=== PATIENT | male | born 1975 | race Hispanic/Latino ===

== ENCOUNTER 2016-06-05 17:57 | Emergency (ER) | payer OTHER ==
[2016-06-05 19:06] LABS: Hematocrit 34.6 % (35.5-45.6); Hemoglobin 11.4 gm/dl (11.8-15.2); Mean Corpuscular HGB Conc 33 % (32-34); Mean Corpuscular Hemoglobin 27 pg (28-32); Mean Corpuscular Volume 82 fl (84-94); Platelet Count 201 K/mm3 (140-440); Red Cell Distribution Width 13.3 % (13.2-15.2); White Blood Count 7.3 K/mm3 (4.5-11.0)
[2016-06-05 19:29] LABS: Anion Gap 18 mmol/L; Blood Urea Nitrogen 12 mg/dL (9-20); Calcium 8.6 mg/dL (8.4-10.2); Carbon Dioxide 27 mmol/L (22-30); Glucose 100 mg/dL (75-100); Potassium 4.6 mmol/L (3.6-5.0); Sodium 144 mmol/L (137-145)
--- NOTE | 2016-06-05 22:19 | Emergency Department Report ---
ED Seizure HPI - General Chief Complaint: Seizure Stated Complaint: SEIZURE Time Seen by Provider: 06/05/16 21:59 Source: patient Mode of arrival: Ambulatory Limitations: No Limitations - History of Present Illness Initial Comments: Patient is a 40-year-old male with a history of seizure disorder, bipolar, hep c , and schizophrenia who presents to the ER status post seizure this morning. Patient is at anger and reports he is often taking his Depakote for 3 days and had a seizure this morning. Patient sent by anchor for evaluation. Patient reports he is back at his baseline and took his Depakote, patient takes 500mg in the morning and 750mg at night. Was no other complaints - Related Data Home Medications Medication Instructions Recorded Confirmed Last Taken Divalproex ER [DepaKOTE ER] 1,000 mg PO QDAY 11/23/15 11/23/15 11/22/15 Divalproex ER [DepaKOTE ER] 500 mg PO QHS 11/23/15 11/23/15 11/22/15 Gabapentin [Neurontin] 800 mg PO Q8H 11/23/15 11/23/15 11/22/15 Ranitidine HCl [Heartburn Relief] 300 mg PO DAILY 11/23/15 11/23/15 11/22/15 Ziprasidone [Geodon] 60 mg PO QHS 11/23/15 11/23/15 11/22/15 diphenhydrAMINE [Benadryl CAP] 25 mg PO Q8HR PRN 11/23/15 11/23/15 11/22/15 hydrOXYzine PAMOATE [Vistaril] 25 mg PO Q6HR PRN 11/23/15 11/23/15 11/22/15 Allergies Allergy/AdvReac Type Severity Reaction Status Date / Time No Known Allergies Allergy Unverified 11/22/15 18:06 ED Review of Systems ROS: Stated complaint: SEIZURE Other details as noted in HPI Comment: All other systems reviewed and negative ED Past Medical Hx - Past Medical History Hx Hypertension: Yes Hx Psychiatric Treatment: Yes (bipolar ,schizophrenia, PTSD) Additional medical history: hep C; cirrhosis, lift support from vet injury,head injury,plates in right foot - Surgical History Additional Surgical History: back fusions - Social History Smoking Status: Never Smoker Substance Use Type: None - Medications Home Medications: Home Medications Medication Instructions Recorded Confirmed Last Taken Type Divalproex ER [DepaKOTE ER] 1,000 mg PO QDAY 11/23/15 11/23/15 11/22/15 History Divalproex ER [DepaKOTE ER] 500 mg PO QHS 11/23/15 11/23/15 11/22/15 History Gabapentin [Neurontin] 800 mg PO Q8H 11/23/15 11/23/15 11/22/15 History Ranitidine HCl [Heartburn Relief] 300 mg PO DAILY 11/23/15 11/23/15 11/22/15 History Ziprasidone [Geodon] 60 mg PO QHS 11/23/15 11/23/15 11/22/15 History diphenhydrAMINE [Benadryl CAP] 25 mg PO Q8HR PRN 11/23/15 11/23/15 11/22/15 History hydrOXYzine PAMOATE [Vistaril] 25 mg PO Q6HR PRN 11/23/15 11/23/15 11/22/15 History ED Physical Exam - General Limitations: No Limitations General appearance: alert, in no apparent distress - Head Head exam: Present: atraumatic, normocephalic - Eye Eye exam: Present: normal appearance - ENT ENT exam: Present: mucous membranes moist - Neck Neck exam: Present: normal inspection - Respiratory Respiratory exam: Present: normal lung sounds bilaterally. Absent: respiratory distress - Cardiovascular Cardiovascular Exam: Present: regular rate, normal rhythm. Absent: systolic murmur, diastolic murmur, rubs, gallop - GI/Abdominal GI/Abdominal exam: Present: soft, normal bowel sounds - Rectal Rectal exam: Present: deferred - Extremities Exam Extremities exam: Present: normal inspection - Back Exam Back exam: Present: normal inspection - Neurological Exam Neurological exam: Present: alert, oriented X3 - Psychiatric Psychiatric exam: Present: normal affect, normal mood - Skin Skin exam: Present: warm, dry, intact, normal color. Absent: rash ED Course Vital Signs 06/05/16 06/05/16 18:30 21:50 Temperature 98.2 F 98.1 F Pulse Rate 102 H 79 Respiratory 18 14 Rate Blood Pressure 137/83 Blood Pressure 139/88 [Left] O2 Sat by Pulse 100 97 Oximetry ED Medical Decision Making - Lab Data Result diagrams: 06/05/16 18:49 06/05/16 18:49 - EKG Data -: EKG Interpreted by Me (22:37) EKG shows normal: sinus rhythm, axis (normal axis, no LVH), intervals (Qtc:467ms ), ST-T waves ((-)ST/T changes, no stemi) Rate: normal (83 bpm) - Medical Decision Making Patient given his afternoon dose of Depakote 750 mg by mouth Critical care attestation.: If time is entered above; I have spent that time in minutes in the direct care of this critically ill patient, excluding procedure time. ED Disposition Clinical Impression: Seizure disorder Clinical Impression: (Ruled Out): Seizure disorder as sequela of cerebrovascular accident Disposition: DISCHARGED TO HOME OR SELFCARE Is pt being admited?: No Condition: Stable Instructions: Epilepsy (ED) Referrals: PRIMARY CARE, [Primary Care Provider] - 3-5 Days
[2016-06-05 23:19] VITALS: BP 128/74
== END 2016-06-05 23:28 | disposition home or self-care (01) ==
LOC: ED 17:57
DX: G40.909 Epilepsy, unspecified, not intractable, without status epilepticus (principal); I10 Essential (primary) hypertension; F31.9 Bipolar disorder, unspecified; F20.9 Schizophrenia, unspecified
CPT/HCPCS: 36415; 80048; 80164; 85027; 93005; 93010; 99283

== ENCOUNTER 2016-06-09 11:32 | Emergency (ER) | payer OTHER ==
--- NOTE | 2016-06-09 12:11 | Emergency Department Report ---
Entered by REBECA CONWAY, acting as scribe for SANDY ANAYA NP. Chief Complaint: Seizure Stated Complaint: WEAKNESS Time Seen by Provider: 06/09/16 11:58 - HPI History of Present Illness: 40 y/o male presents c/o 8/10, pain and numbness in both hands that started 2 days ago. Sx include LE swelling, slurred speech and weakness but denies any seizures occurring last night. He notes being seen here in the last week for similar Sx. Hx of seizures. Meds include suboxone hep c opiate addiction sz hx ?abscence sz in triage v over medicated pt is falling asleep in triage NAD VSS MAEW - ROS Review of Systems: as noted in HPI - Exam Vital Signs: Vital Signs 06/09/16 11:51 Temperature 98.0 F Pulse Rate 72 Blood Pressure 142/87 O2 Sat by Pulse 97 Oximetry Physical Exam: as noted in HPI MSE screening note: Focused history and physical exam performed. Due to findings the following was ordered: ED Disposition for MSE Condition: Stable This documentation as recorded by the scribe,REBECA CONWAY,accurately reflects the service I personally performed and the decisions made by ,SANDY ANAYA NP.
[2016-06-09 13:06] LABS: Urine Drugs of Abuse Note Disclamer
[2016-06-09 13:17] LABS: Bilirubin,Urine NEG (Negative); Blood,Urine NEG (Negative); Ketones,Urine NEG (Negative); Leukocyte Esterase,Urine NEG (Negative); Mucus,Urine FEW /HPF; Nitrite,Urine NEG (Negative); Protein,Urine <15 mg/dL mg/dL (Negative); Urobilinogen,Urine < 2.0 mg/dL (<2.0)
--- NOTE | 2016-06-09 17:29 | Cat Scan Report ---
FINAL REPORT PROCEDURE: CT HEAD/BRAIN WO CON TECHNIQUE: Computerized tomography of the head was performed without contrast material. HISTORY: Headache. Fatigue. Confusion. COMPARISON: No prior studies are available for comparison. 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 Paranasal sinuses: Normal. Ventricles and subarachnoid spaces: Normal. Cerebrum: No evidence of hemorrhage, acute infarction or mass . Cerebellum and brainstem: No evidence of hemorrhage, acute infarction or mass. Vasculature: Normal. Comments: None. IMPRESSION: No CT evidence of acute intracranial pathology. Consider MRI of the brain for further characterization if there is continued clinical concern and if patient has no contraindication to MRI.
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
[2016-06-09 18:19] VITALS: BP 136/76
[2016-06-09 18:34] LABS: Basophils % (Auto) 0.5 % (0.0-1.8); Eosinophils % (Auto) 7.7 % (0.0-4.3); Hematocrit 33.8 % (35.5-45.6); Hemoglobin 11.2 gm/dl (11.8-15.2); Mean Corpuscular HGB Conc 33 % (32-34); Mean Corpuscular Hemoglobin 27 pg (28-32); Mean Corpuscular Volume 82 fl (84-94); Platelet Count 178 K/mm3 (140-440); Red Cell Distribution Width 13.3 % (13.2-15.2); White Blood Count 5.3 K/mm3 (4.5-11.0)
[2016-06-09 18:44] LABS: Partial Thromboplastin Time 32.3 Sec. (24.2-36.6)
[2016-06-09 18:50] LABS: Alanine Aminotransferase 15 units/L (7-56); Albumin 3.4 g/dL (3.9-5); Albumin/Globulin Ratio 1.3 %; Alkaline Phosphatase 65 units/L (35-129); Anion Gap 15 mmol/L; BUN/Creatinine Ratio 17.77; Bilirubin,Total 0.5 mg/dL (0.1-1.2); Blood Urea Nitrogen 16 mg/dL (9-20); Calcium 8.3 mg/dL (8.4-10.2); Carbon Dioxide 28 mmol/L (22-30); Chloride 102.5 mmol/L (98-107); Glucose 91 mg/dL (75-100); Potassium 4.2 mmol/L (3.6-5.0); Sodium 141 mmol/L (137-145)
== END 2016-06-09 19:36 | disposition home or self-care (01) ==
LOC: ED 11:32
DX: R60.0 Localized edema (principal); L73.9 Follicular disorder, unspecified; R40.0 Somnolence; I10 Essential (primary) hypertension; R56.9 Unspecified convulsions; F31.9 Bipolar disorder, unspecified; F20.9 Schizophrenia, unspecified; B19.20 Unspecified viral hepatitis C without hepatic coma
CPT/HCPCS: 36415; 70450; 80053; 80164; 80307; 81001; 82140; 83880; 85025; 85610; 85730; 99284; G0480; 80320

== ENCOUNTER 2016-12-06 11:04 | Emergency (ER) | payer OTHER ==
[2016-12-06 12:11] LABS: Urine Drugs of Abuse Note Disclamer
[2016-12-06 12:20] LABS: Bilirubin,Urine NEG (Negative); Blood,Urine NEG (Negative); Ketones,Urine NEG (Negative); Leukocyte Esterase,Urine NEG (Negative); Mucus,Urine FEW /HPF; Nitrite,Urine NEG (Negative); Protein,Urine <15 mg/dL mg/dL (Negative); WBC,Urine < 1.0 /HPF (0.0-6.0)
[2016-12-06 12:32] LABS: Basophils % (Auto) 0.3 % (0.0-1.8); Eosinophils % (Auto) 0.6 % (0.0-4.3); Hematocrit 38.4 % (35.5-45.6); Hemoglobin 13.1 gm/dl (11.8-15.2); Mean Corpuscular HGB Conc 34 % (32-34); Mean Corpuscular Hemoglobin 28 pg (28-32); Mean Corpuscular Volume 83 fl (84-94); Platelet Count 200 K/mm3 (140-440); Red Blood Count 4.63 M/mm3 (3.65-5.03); Red Cell Distribution Width 14.1 % (13.2-15.2); White Blood Count 5.7 K/mm3 (4.5-11.0)
[2016-12-06 12:35] LABS: Anion Gap 18 mmol/L; BUN/Creatinine Ratio 15; Blood Urea Nitrogen 12 mg/dL (9-20); Calcium 8.8 mg/dL (8.4-10.2); Carbon Dioxide 25 mmol/L (22-30); Chloride 100.3 mmol/L (98-107); Glucose 97 mg/dL (75-100); Potassium 4.4 mmol/L (3.6-5.0); Sodium 139 mmol/L (137-145)
[2016-12-06 23:09] LABS: Urine Drugs of Abuse Note Disclamer
[2016-12-06 23:28] LABS: Bilirubin,Urine NEG (Negative); Blood,Urine NEG (Negative); Ketones,Urine TR mg/dL (Negative); Leukocyte Esterase,Urine NEG (Negative); Mucus,Urine 2+ /HPF; Nitrite,Urine NEG (Negative)
--- NOTE | 2016-12-06 23:48 | Emergency Department Report ---
ED Psych HPI - General Chief Complaint: Medical Clearance Stated Complaint: MENTAL HEALTH Time Seen by Provider: 12/06/16 23:25 Source: patient Mode of arrival: Ambulatory - History of Present Illness Initial Comments: 41-year-old male brought in to ER for medical clearance. He is known to have psychiatric illness. Past history of suicidal ideation, substance abuse and seizure disorder. He was taken to [facility], a psychiatric facilityl this morning for evaluation but he couldn't be admitted there because his spouse is also in same facility. He was brought to [facility] for psychiatric evaluation and clearance. He admits to abusing cocaine and meth about 2 weeks now. Noncompliant on his usual psychiatric medication. While in the ER is become very aggressive and very explosive in his actions also expressing delusional ideas and denies suicidal ideation. MD Complaint: altered mental status -: Gradual, week(s) (2, progressively getting worse) Associated Psychiatric Symptoms: racing thoughts, delusions History of same: Yes Quality: getting worse Improves With: none Worsens With: none Context: recent alcohol abuse, recent drug abuse (cocaine and meth), not taking psychiatric Associated Symptoms: shortness of breath Treatments Prior to Arrival: placed on mental he, physical restraints - Related Data Home Medications Medication Instructions Recorded Confirmed Last Taken No Known Home Medications [No 12/06/16 12/06/16 Unknown Reported Home Medications] Allergies Allergy/AdvReac Type Severity Reaction Status Date / Time No Known Allergies Allergy Unverified 11/22/15 18:06 ED Review of Systems ROS: Stated complaint: MENTAL HEALTH Other details as noted in HPI Comment: Unobtainable due to pts medical conditions (patient not very cooperative, expressing additional ideas very aggitated and aggressive) Constitutional: no symptoms reported, weakness ED Past Medical Hx - Past Medical History Hx Hypertension: Yes Hx Seizures: Yes Hx Psychiatric Treatment: Yes (bipolar ,schizophrenia, PTSD) Additional medical history: hep C; cirrhosis, lift support from vet injury,head injury,plates in right foot - Surgical History Additional Surgical History: back fusions - Social History Smoking Status: Current Every Day Smoker Substance Use Type: Alcohol, Cocaine, Methamphetamines - Medications Home Medications: Home Medications Medication Instructions Recorded Confirmed Last Taken Type No Known Home Medications [No 12/06/16 12/06/16 Unknown History Reported Home Medications] ED Physical Exam - General Limitations: No Limitations General appearance: anxious, other (agitated and very aggressive, 4-point restraints applied) - Head Head exam: Present: atraumatic, normocephalic, normal inspection - Eye Eye exam: Present: normal appearance, PERRL, EOMI. Absent: scleral icterus, conjunctival injection, nystagmus - ENT ENT exam: Present: normal exam, normal orophraynx - Neck Neck exam: Present: normal inspection, full ROM. Absent: tenderness, meningismus, lymphadenopathy - Respiratory Respiratory exam: Present: normal lung sounds bilaterally. Absent: respiratory distress, wheezes, chest wall tenderness, accessory muscle use, decreased breath sounds - Cardiovascular Cardiovascular Exam: Present: regular rate, normal rhythm, normal heart sounds. Absent: bradycardia, tachycardia, systolic murmur, diastolic murmur, rubs - GI/Abdominal GI/Abdominal exam: Present: soft, distended, normal bowel sounds. Absent: tenderness, guarding, rebound, rigid, diminished bowel sounds, hyperactive bowel sounds, hypoactive bowel sounds, organomegaly, mass, bruit, pulsatile mass - Rectal Rectal exam: Present: deferred - Extremities Exam Extremities exam: Present: normal inspection, full ROM, normal capillary refill. Absent: pedal edema, joint swelling - Back Exam Back exam: Present: normal inspection, full ROM. Absent: CVA tenderness (R), CVA tenderness (L), muscle spasm, vertebral tenderness - Neurological Exam Neurological exam: Present: alert, CN II-XII intact, other (very aggressive) - Psychiatric Psychiatric exam: Present: agitated, anxious, manic ED Course Vital Signs 12/06/16 12/07/16 11:35 03:30 Temperature 98.4 F 98.3 F Pulse Rate 94 H 98 H Respiratory 20 20 Rate Blood Pressure 161/91 Blood Pressure 130/88 [Left] O2 Sat by Pulse 99 100 Oximetry - Consultations Consultation #1: 12/07/16 04:59 Patient has already been seen by the mental health officer ED Medical Decision Making - Lab Data Result diagrams: 12/06/16 11:52 12/06/16 11:52 Critical Care Time: No Critical care attestation.: If time is entered above; I have spent that time in minutes in the direct care of this critically ill patient, excluding procedure time. ED Disposition Clinical Impression: Delusional disorder, Psychosis, Polysubstance abuse Disposition: [id number] PSY HOSP/PSY UNIT Is pt being admited?: No Does the pt Need Aspirin: No Condition: Stable Referrals: PRIMARY CARE, [Primary Care Provider] - 3-5 Days Time of Disposition: 06:10
[2016-12-07] MEDS ORDERED: HALDOL ONE (04:35)
[2016-12-07] MEDS ORDERED: HALDOL IM PRN (04:37)
[2016-12-07] MEDS ORDERED: BENADRYL IM PRN (04:38)
[2016-12-07] MEDS ORDERED: ATIVAN IM PRN (04:39)
[2016-12-07 08:28] VITALS: BP 105/61
--- NOTE | 2016-12-07 13:19 | Consultation ---
History of Present Illness - Reason for Consult Consult date: 12/07/16 Reason for consult: Mental Health Evaluation Requesting physician: JACQUES FONSECA - Chief Complaint Chief complaint: "I am tired" - History of Present Psychiatric Illness 41 y.o. white male presenting to [facility] for medical clearance. Per the ER note patient was delusional and aggressive during triage, so patient had to be restrained and given PRN medication. Today patient is calm, but lethargic during the assessment. He stated that he was tired when asked how he felt. When asked why he went to [facility] initially, he stated, "I don't know." Per the ER note, the patient's spouse is inpatient at [facility]. Throughout the interview, the patient would mumble some answers when asked questions. He did state binging on "meth and cocaine" the last 5 days, and noncompliant with his psy medication for 2 weeks (Todd). After answering questions about his current medication, patient fell alseep. UDS positive for amphetamines. Medications and Allergies Allergies Allergy/AdvReac Type Severity Reaction Status Date / Time No Known Allergies Allergy Unverified 11/22/15 18:06 Home Medications Medication Instructions Recorded Confirmed Last Taken Type No Known Home Medications [No 12/06/16 12/06/16 Unknown History Reported Home Medications] Active Meds: Active Medications Diphenhydramine HCl (Benadryl) 50 mg IM Q6H PRN PRN Reason: Agitation Stop: 12/10/16 04:37 Haloperidol Lactate (Haldol) 5 mg IM Q6H PRN PRN Reason: Agitation Stop: 12/10/16 04:36 Last Admin: 12/07/16 04:43 Dose: 5 mg Lorazepam (Ativan) 2 mg IM Q6H PRN PRN Reason: Agitation Stop: 12/10/16 04:38 Past psychiatric history - Past Medical History Past Medical History: hypertension, seizures Past Surgical History: Other - past Psychiatric treatment and history Psych: Bipolar, Schizophrenia psychiatric treatment history: Multiple inpatient settings. Denies a fam psy hx. - Social History Social history: lives with family Mental Status Exam - Vital signs Last Vital Signs Temp 98.4 F 12/07/16 08:27 Pulse 77 12/07/16 08:27 Resp 20 12/07/16 08:27 BP 105/61 12/07/16 08:27 Pulse Ox 98 12/07/16 08:27 - Exam Narrative exam: MSE: Appearance: calm Behavior: regular eye contact Speech: mumbles some of his answers Mood: "tired" lethargic Affect: flat Thought Process: circumstantial Thought Content: denies SI/HI's and AVH's Motor Activity: ambulatory Cognition: A/O x3 Insight: variable Judgment: variable Results Result Diagrams: 12/06/16 11:52 12/06/16 11:52 All other labs normal. Assessment and Plan Assessment and plan: Impression: Historical Dx: Schizoaffective DO. Substance Induced Psychosis on admission. Substance Use DO (amphetamines). Today patient is calm, but lethargic during the assessment. Positive for amphetamines. DDx: R/O Bipolar DO, R/O Schizophrenia Recommendation/Plan: Continue 1013 with placement to [facility] today.
== END 2016-12-07 15:49 ==
LOC: ED 11:04 → EEVIPCON 11:04 → ED 12-07 15:49
DX: F22 Delusional disorders (principal); F23 Brief psychotic disorder; F14.10 Cocaine abuse, uncomplicated; F19.10 Other psychoactive substance abuse, uncomplicated; F31.9 Bipolar disorder, unspecified; F20.9 Schizophrenia, unspecified; R56.9 Unspecified convulsions; F17.200 Nicotine dependence, unspecified, uncomplicated
CPT/HCPCS: 36415; 80048; 80307; 81001; 85025; 96372; 99285; G0480; J1630; 80320